=== PATIENT | male | born 1985 | race African-American/Black ===

== ENCOUNTER → 2016-08-19 | Outpatient (CLI) | payer SELFPAY ==
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
== END | disposition home or self-care (01) ==
LOC: CRAD 13:17
DX: M25.532 Pain in left wrist (principal); M79.602 Pain in left arm; S52.602D Unspecified fracture of lower end of left ulna, subsequent encounter for closed fracture with routine healing; Z98.890 Other specified postprocedural states
CPT/HCPCS: 73090; 73110

== ENCOUNTER 2016-10-18 10:11 | Emergency (ER) | payer SELFPAY ==
[~2016-10-18] VITALS: Ht 180.3 cm; Wt 67.1 kg
--- NOTE | ~2016-10-18 | CR63 ---
[facility] A Service of [facility] RADIOLOGY TEXT RESULTS PATIENT: EHSAN BURNS LOCATION: [facility] : 85 UNIT #: [id number] AGE: [address]: Neelam Albarran SEX: M ORDER DR: [id number] [place] [address] [facility]. [place], [place] [address] [id number] E MR#: [id number] Acc #: [id number] NAME: EHSAN BURNS : 1985 SEX: M STUDY DATE/TIME: 10/18/2016 10:53 UNIT: [facility] ROOM: STUDY DESCRIPTION: CR Chest 2 View Attending Physician: Neelam Albarran P.A.-C. Ordering Physician: Neelam Albarran P.A.-C. Primary Care Physician: No Primary Care Physician MEDICAL IMAGING REPORT This report is preliminary unless electronic signature is present EXAM Chest 2 views 10/18/2016 10:53 hours HISTORY A 31-year-old with cough, congestion for 1 week. History of prior collapsed lung. COMPARISON None. FINDINGS Upright PA and lateral views of the chest demonstrate normal cardiac, mediastinal and hilar contours. The lungs are mildly hyperinflated. There is some linear to bandlike density abutting the dome of the right hemidiaphragm with mild tenting of the diaphragm anteriorly suggesting possible scar. No definite pneumonia, edema or pneumothorax. IMPRESSION There is linear to band-like density abutting the dome of the right hemidiaphragm with mild associated tenting of the dome of the right hemidiaphragm suggesting chronic pleural scar. There is no evidence of pneumonia, edema, effusion or pneumothorax. Dictated by... Kezia Sanchez M.D. THIS IS AN ELECTRONICALLY VERIFIED REPORT Kezia Sanchez M.D. at 10/18/2016 7:10 PM Fadumo TD: 10/18/2016 14:32 JOB #: [id number] [facility] A Service [facility] RADIOLOGY TEXT RESULTS PATIENT: EHSAN BURNS LOCATION: [facility] : 85 UNIT #: [id number] AGE: [address]: Neelam Albarran SEX: M ORDER DR: MEDICAL IMAGING REPORT Page 1 of 1 COPY
== END 2016-10-18 11:40 | disposition home or self-care (01) ==
LOC: CFTX 10:11 → CED 10:11 → CFTX 11:35
DX: J02.0 Streptococcal pharyngitis (principal); F17.210 Nicotine dependence, cigarettes, uncomplicated; Z98.890 Other specified postprocedural states
CPT/HCPCS: 71020; 87880; 96372; 99283; J0561

== ENCOUNTER 2016-10-25 21:47 | Emergency (ER) | payer SELFPAY ==
[~2016-10-25] VITALS: Ht 180.3 cm; Wt 67.1 kg
== END 2016-10-25 23:20 | disposition left against medical advice (07) ==
LOC: CED 21:47
DX: Z53.21 Procedure and treatment not carried out due to patient leaving prior to being seen by health care provider (principal)

== ENCOUNTER 2016-10-26 00:18 | Emergency (ER) | payer SELFPAY ==
[~2016-10-26] VITALS: Ht 177.8 cm; Wt 67.1 kg
--- NOTE | ~2016-10-26 | CR72 ---
[facility] A Service of [facility] & [facility] RADIOLOGY TEXT RESULTS PATIENT: EHSAN BURNS LOCATION: [facility] : 85 UNIT #: [id number] AGE: [address]: Barry Johnson MD SEX: M ORDER DR: [id number] [facility] [address] [facility]. [place], [place] [address] [id number] E MR#: [id number] Acc #: [id number] NAME: EHSAN BURNS : 1985 SEX: M STUDY DATE/TIME: 10/26/2016 1:51 UNIT: [facility] ROOM: STUDY DESCRIPTION: CR Chest Single View Portable Attending Physician: Barry Johnson M.D. Ordering Physician: Barry Johnson M.D. Primary Care Physician: No Primary Care Physician MEDICAL IMAGING REPORT This report is preliminary unless electronic signature is present EXAM Portable chest. HISTORY Chest pain and cough for one week. FINDINGS A single AP portable view of the chest shows both lungs to be clear. The heart is normal in size. The mediastinal contour is normal. No significant bone abnormalities are seen. IMPRESSION Normal portable chest. Dictated by... Dane Silverio M.D. THIS IS AN ELECTRONICALLY VERIFIED REPORT Dane Silverio M.D. at 10/26/2016 4:23 AM DELIO/dalton TD: 10/26/2016 03:08 JOB #: [id number] MEDICAL IMAGING REPORT Page 1 of 1 COPY
== END 2016-10-26 02:46 | disposition home or self-care (01) ==
LOC: CED 00:18
DX: J02.0 Streptococcal pharyngitis (principal); F17.210 Nicotine dependence, cigarettes, uncomplicated
CPT/HCPCS: 71010; 87880; 99283